=== PATIENT | female | born 1955 | race Caucasian/White ===

== ENCOUNTER 2021-03-19 16:03 | Emergency (ER) | payer OTHER ==
[~2021-03-19] VITALS: Ht 160 cm; Wt 70.3 kg
[~2021-03-19 16:03] MED LIST: AMBIEN 10 MG TA10 MG PO; B-100 COMPLEX1 EAC1 PO; ESTRACE0.5 MG PO; LIPITOR20 MG PO; LISINOPRIL10 MG PO; LODINE XL400 MG PO; LYRICA100 MG PO; NEURONTIN 300300 M1 PO; ULTRAM 50MG TAB50 MG PO
[2021-03-19] MEDS ORDERED: CYMBALTA60 MG PO (16:34)
[2021-03-19] MEDS ORDERED: NORTRIPTYLINE H10 M1 PO (16:34)
[2021-03-19 17:37] LABS: ABSOLUTE BASOPHILS 0.1 thou/uL (0.0-0.2); ABSOLUTE EOSINOPHILS 0.1 thou/uL (0.0-0.7); ABSOLUTE LYMPHOCYTES 1.6 thou/uL (0.8-5.3); ABSOLUTE MONOCYTES 0.6 thou/uL (0.0-1.2); ABSOLUTE NEUTROPHILS 4.1 thou/uL (1.6-8.1); EOSINOPHILS 1.9 %; HEMATOCRIT 39.5 % (37.0-47.0); HEMOGLOBIN 13.4 gm/dL (12.0-15.0); LYMPHOCYTES 25.2 %; MCH 30.1 pg (26.0-34.0); MCHC 33.9 g/dL (28.0-37.0); MCV 88.7 fL (80.0-100.0); MONOCYTES 9.1 %; MPV 7.8 fl. (7.2-11.1); NUCLEATED RBCS 0 /100WBC; PLATELET COUNT* 272 thou/uL (150-400); POLYS 62.8 %; RBC 4.45 mil/uL (4.20-5.00); RDW-CV 13.4 % (10.5-14.5); WBC 6.5 thou/uL (4.0-11.0)
[2021-03-19 17:49] LABS: CALCIUM 8.9 mg/dL (8.5-10.1); POTASSIUM 3.6 mmol/L (3.5-5.1)
[2021-03-19 17:54] LABS: ALBUMIN 3.7 g/dL (3.4-5.0); TOTAL BILIRUBIN 0.5 mg/dL (<0.1-1.0); TOTAL PROTEIN 7.2 g/dL (6.4-8.2)
[2021-03-19 19:07] LABS: URINE BILIRUBIN NEGATIVE (Negative); URINE BLOOD NEGATIVE (Negative); URINE COLOR YELLOW; URINE GLUCOSE-RANDOM NEGATIVE (Negative); URINE KETONES NEGATIVE (Negative); URINE LEUKOCYTES-REFLEX 1+ (Negative); URINE NITRITE-REFLEX NEGATIVE (Negative); URINE PROTEIN NEGATIVE (Negative); URINE SPECIFIC GRAVITY 1.015 (1.005-1.030); URINE UROBILINOGEN 0.2 E.U./dl (0.2-1.0)
[2021-03-19 19:09] LABS: URINE CLARITY HAZY
[2021-03-19 19:18] LABS: SQUAMOUS 4-10 Moderate /LPF (0-3); URINE WBC-REFLEX 0-5 Rare /HPF (0-5)
[2021-03-19 19:19] LABS: CASTS None Seen /LPF (None Seen); CRYSTALS None Seen /LPF (None Seen); URINE RBC None Seen /HPF (0-2)
[2021-03-19] MEDS ORDERED: KEPPRA XR500 MG PO (22:03)
[2021-03-19 22:16] VITALS: BP 123/70
--- NOTE | 2021-03-20 15:20 | EKG ---
[place] [address] ELECTROCARDIOGRAM REPORT Name: SAMMIE FERRARI Room: [facility]#: [id number] Admission: 03/19/21 Attend Phys: Discharge: 03/19/21 Date of : 55 Date of Service: 03/19/21 1734 Report #: [id number] THIS REPORT FOR: //name// [facility] ED Test Date: 2021-03-19 Test Time: 17:34:35 Pat Name: SAMMIE FERRARI Department: Room: Gender: F Account Installation Specialist: : [id number] Requested By: Garrick Soto Order Number: [id number] MD: Rahul Medina Measurements Intervals Slater Rate: 76 P: 63 OR: 143 QRS: 71 QRSD: 89 T: 49 QT: 393 QTc: 442 Interpretive Statements Sinus rhythm Abnormal R-wave progression, early transition Minimal ST depression, diffuse leads No previous ECG available for comparison Electronically Signed On 03-20-2021 15:20:24 [employer] by Rahul Medina [email or web address] <ELECTRONICALLY SIGNED> By: Rahul Medina MD, FACC 03/20/21 1520 1734 1734 Rahul Medina MD, [facility] /EPI
== END 2021-03-19 22:16 | disposition short-term general hospital (02) ==
LOC: M.ERS 16:03
PROVIDERS: Physician Assistant
DX: I61.8 Other nontraumatic intracerebral hemorrhage (principal); Z20.822 Contact with and (suspected) exposure to COVID-19; R51.9 Headache, unspecified; R42 Dizziness and giddiness; I10 Essential (primary) hypertension; M79.7 Fibromyalgia; M19.90 Unspecified osteoarthritis, unspecified site; G89.29 Other chronic pain; Z96.652 Presence of left artificial knee joint; Z88.8 Allergy status to other drugs, medicaments and biological substances; Z79.899 Other long term (current) drug therapy